=== PATIENT | male | born 1980 | race Caucasian/White ===

== ENCOUNTER → 2017-02-22 | Day surgery (SDC) | payer BC ==
[~2017-02-22] MED LIST: ALBUTEROL17 GM INH; ALLER-EASE180 MG PO; DULERA 200 MCG/13 GM INH; FAMOTIDINE20 M1 PO; FLONASE; HYDROMET SYRUP480 ML PO; MULTI-VITAMIN1 EAC1 PO; NEXIUM PO; PREDNISONE PO; RHINOCORT AQUA8.6 GM; SINGULAIR PO; SYMBICORT 160/4.6 GM IH; ZITHROMAX PO
--- NOTE | ~2017-02-22 | OR ---
Unit #: [id number] #: [id number] Patient: CHERELLE SMIHT [id number] [address] [place], [place] [address] [id number] O MR#: [id number] NAME: CHERELLE SMITH ROOM: Date of Procedure: 02/22/2017 Admission Date: 02/22/2017 Surgeon: Tiago Mayo III, M.D. : 1980 Attending Physician: Tiago Mayo III, M.D. Primary Care Physician: Sawyer Petty M.D. OPERATIVE REPORT PREOPERATIVE DIAGNOSES Right axillary cyst and left scalp mass. POSTOPERATIVE DIAGNOSES Right axillary cyst and left scalp mass. PROCEDURES PERFORMED Excision of 1 cm right axillary cyst and excision of 2 cm left scalp mass. ANESTHESIA MAC. SPECIMEN Labeled separately and sent to Pathology. COMPLICATIONS None apparent. ESTIMATED BLOOD LOSS Minimal. INDICATIONS FOR PROCEDURE This is a 36-year-old gentleman, who presented to my office with two separate areas of concern. In the right axilla, he has a 1 cm cyst that has been intermittently infected. He is here today to have that excised. He also has a slowly growing mass on the left scalp area that is to be excised for pathologic diagnosis. DESCRIPTION OF PROCEDURE After consent was obtained, the patient was brought to the operating room and placed in the supine position. MAC was given and his right axilla and left scalp were prepped and draped in standard surgical fashion. I injected the areas with 1% lidocaine with epinephrine. I started on the right axillary mass. I made an approximately 0.5 cm elliptical incision that completely incorporated the area of abnormality. I achieved good hemostasis and I closed the incision with a running 4-0 Vicryl subcuticular suture. Next, I turned my attention to the left scalp mass. I made a longitudinal incision overlying the area. I sharply excised the area completely and it was clinically consistent with a cyst. The entire cyst wall was removed as well. I achieved good hemostasis and again I closed the incision with a running 4-0 Vicryl subcuticular suture. Neosporin was then applied. The patient tolerated the procedure without Unit #: [id number] #: [id number] Patient: CHERELLE SMITH any problems and returned to the recovery room in stable condition. Dictated by... Tiago Mayo III, M.D. VCL/geoff TD: 02/24/2017 15:12 JOB #: [id number] CC: Sawyer Petty M.D. OPERATIVE REPORT Page 1 of 1 X Tiago Mayo III, MD X PROCEDURE OPERATIVE NOTE
== END | disposition home or self-care (01) ==
LOC: CSUR 06:28
DX: L72.11 Pilar cyst (principal); L72.0 Epidermal cyst; K21.9 Gastro-esophageal reflux disease without esophagitis; Z88.8 Allergy status to other drugs, medicaments and biological substances; Z79.899 Other long term (current) drug therapy
CPT/HCPCS: 88304; J2250; J3010